=== PATIENT | female | born 1985 | race Caucasian/White ===

== ENCOUNTER 2017-01-16 10:58 | Emergency (ER) | payer SELFPAY ==
--- NOTE | 2017-01-16 11:23 | NUR ---
PATIENT LEFT WITHOUT BEING SEEN BY DR. QUEZADA. NO FURTHER CARE PROVIDED FOR PATIENT.
== END 2017-01-16 11:23 | disposition left against medical advice (07) ==
LOC: MED 10:58
DX: R10.9 Unspecified abdominal pain (principal); Z53.21 Procedure and treatment not carried out due to patient leaving prior to being seen by health care provider

== ENCOUNTER 2017-03-28 15:11 | Emergency (ER) | payer SELFPAY ==
--- NOTE | 2017-03-28 15:39 | NUR ---
CALLED AT THE LOBBY TWICE AND OUTSIDE NO RESPONSE; JAY
== END 2017-03-28 15:39 | disposition left against medical advice (07) ==
LOC: MED 15:11
DX: R51 Headache (principal); Z53.21 Procedure and treatment not carried out due to patient leaving prior to being seen by health care provider